=== PATIENT | female | born 1985 | race Caucasian/White ===

== ENCOUNTER 2022-05-10 11:13 | Emergency (ER) | payer OTHER ==
[~2022-05-10] VITALS: Ht 157.5 cm; Wt 81.6 kg
[2022-05-10 11:27] VITALS: BP 112/73
--- NOTE | 2022-05-10 11:39 | NUR ---
DOOR REPAIRER BUS AT BEDSIDE
[2022-05-10] MEDS ORDERED: IBUP-1842 PO (13:26)
--- NOTE | 2022-05-10 13:38 | NUR ---
CRUTCHES PROVIDED AND RETURNED SAFE DEMONSTRATION. KNEE IMMOBILIZER APPLIED TO R KNEE. + CMS
--- NOTE | 2022-05-10 13:58 | NUR ---
Patient discharged with v/s stable. Written and verbal after care instructions given and explained. Patient alert, oriented and verbalized understanding of instructions. Ambulatory with to car. All questions addressed prior to discharge. ID band removed. Patient advised to follow up with PMD. Rx of IBUPROFEN given. Patient educated on indication of medication including possible reaction and side effects. Opportunity to ask questions provided and answered.
== END 2022-05-10 13:56 | disposition home or self-care (01) ==
LOC: MED 11:13
DX: M25.561 Pain in right knee (principal)
CPT/HCPCS: 29505; 73562; 99283